=== PATIENT | male | born 1985 | race Caucasian/White ===

== ENCOUNTER 2020-11-11 21:55 | Emergency (ER) | payer OTHER ==
[~2020-11-11] VITALS: Ht 170.2 cm; Wt 104.3 kg
[2020-11-11] MEDS ORDERED: CEPHALEXIN500 MG PO (22:40)
== END 2020-11-11 22:50 | disposition home or self-care (01) ==
LOC: ED 21:55
DX: J02.9 Acute pharyngitis, unspecified (principal); Z88.8 Allergy status to other drugs, medicaments and biological substances
CPT/HCPCS: 87081; 87880; 99283

== ENCOUNTER 2022-07-15 19:31 | Emergency (ER) | payer OTHER ==
[~2022-07-15] VITALS: Ht 170.2 cm; Wt 101.0 kg
[~2022-07-15 19:31] MED LIST: CEPHALEXIN500 MG PO
== END 2022-07-15 21:32 | disposition home or self-care (01) ==
LOC: ED 19:31
DX: J06.9 Acute upper respiratory infection, unspecified (principal); M25.532 Pain in left wrist; R73.03 Prediabetes; Z88.8 Allergy status to other drugs, medicaments and biological substances
CPT/HCPCS: 73110; 99283-25